=== PATIENT | female | born 1935 | race Caucasian/White ===

== ENCOUNTER 2021-04-01 07:03 | Day surgery (SDC) | payer OTHER ==
[~2021-04-01] VITALS: Ht 157.5 cm; Wt 81.8 kg
[2021-04-01] VITALS (7 sets, daily range): BP systolic 157–180; BP diastolic 74–110
[2021-04-01] MEDS ORDERED: fentaNYL/PF 50MCG/1 ML 2ML syringe ONE (07:36)
[2021-04-01] MEDS ORDERED: LIDOcaine Viscous 15ml cup ONE (07:37)
[2021-04-01] MEDS ORDERED: iohexol 300 MG/1 ML 50ml polymer ONE ×2 (07:37→10:01)
[2021-04-01] MEDS ORDERED: glucagon, human recombinant 1mg kit ONE (07:37)
[2021-04-01] MEDS ORDERED: MIDAZolam 1 MG/ML 5ML VIAL ONE (07:37)
[2021-04-01] MEDS ORDERED: ANAS1TAB10 PO (08:29)
[2021-04-01] MEDS ORDERED: BENA20TA10 PO (08:29)
[2021-04-01] MEDS ORDERED: ENOX80DI10 (08:29)
[2021-04-01] MEDS ORDERED: POT (08:29)
[2021-04-01] MEDS ORDERED: FURO40TA4 PO (08:29)
[2021-04-01] MEDS ORDERED: WARF3TAB8 (08:29)
[2021-04-01] MEDS ORDERED: MULT-1085 PO (08:29)
[2021-04-01] MEDS ORDERED: ERGO400C PO (08:29)
[2021-04-01] MEDS ORDERED: POTA10TA19 PO (08:30)
== END 2021-04-01 11:30 | disposition home or self-care (01) ==
LOC: GI LAB 07:03
PROVIDERS: ATTEND Internal Medicine Gastroenterology
DX: K80.50 Calculus of bile duct without cholangitis or cholecystitis without obstruction (principal); I10 Essential (primary) hypertension; I25.10 Atherosclerotic heart disease of native coronary artery without angina pectoris; Z86.73 Personal history of transient ischemic attack (TIA), and cerebral infarction without residual deficits; Z90.12 Acquired absence of left breast and nipple; Z85.3 Personal history of malignant neoplasm of breast; Z88.2 Allergy status to sulfonamides; Z79.01 Long term (current) use of anticoagulants; Z79.899 Other long term (current) drug therapy
CPT/HCPCS: 43262; 43264; 74328; 99153; C1769; G0500; J1610; J2250; J3010; J7040; Q9967; Z7512; Z7610; 43248; 43450; 99152; A4620; C1726